=== PATIENT | female | born 1960 | race African-American/Black ===

== ENCOUNTER 2025-08-06 23:18 | Emergency (ER) | payer SELFPAY ==
[2025-08-06 23:22] VITALS: BP 193/106
[2025-08-07] VITALS: BP 185/96
[2025-08-07] MEDS: TORADOL 30 MG IM (01:40)
[2025-08-07] MEDS: PERCOCET 5/325 1 TABLET PO (02:00)
--- NOTE | 2025-08-07 02:14 | ED.GENMED ---
History of Present Illness
<Tyler Chaves PA-C - Last Filed: 08/09/25 11:35>
General
Chief Complaint: Musculo-Skeletal Complaint
Time Seen by Provider: 08/07/25 00:31
History of Present Illness
History of Present Illness:
64-year-old female presents to the emergency department for evaluation of left hip pain. She was taking out the trash at work when she fell and landed on her left side. She was able to ambulate but is unable to raise her left lower extremity
without severe pain. She did drive herself here. Pain is predominantly to the lateral hip. Denies head injury
Review of Systems
<Tyler Chaves PA-C - Last Filed: 08/09/25 11:35>
Review of Systems
Allergies reviewed?: Yes
All Other Systems: ROS reviewed and negative except as documented in HPI and ROS
Phy Exam
<Tyler Chaves PA-C - Last Filed: 08/09/25 11:35>
Physical Exam
Physical Exam:
GEN: Well appearing, NAD, WDWN
HEENT: Oral mucosa moist, no scleral icterus
Cardiac: Regular rate
Lung: No respiratory distress, no tachypnea
MSK: No gross deformity or injuries, left hip range of motion severely limited secondary to pain with reproducible tenderness to the lateral hip, no crepitus or shortening/external rotation
Skin: Good color, no pallor or jaundice, no rashes
Neuro: AO x3, moves all extremities freely
Psych: Calm, cooperative
Course
<Tyler Chaves PA-C - Last Filed: 08/09/25 11:35>
Orders/Labs/Results
Orders:
Orders
08/07/25 00:59
CR Hip - LT w/wo Pel 2-3 Vw* Urgent
Comment:
Reason For Exam: fall
Include a pelvis x-ray?: Yes
08/07/25 01:34
Ketorolac [Toradol] 30 mg IM NOW STA
08/07/25 01:39
CT Pelvis W/o Iv Contrast Urgent
Comment:
Reason For Exam: fall L hip pain
08/07/25 01:43
Oxycodone/Acetaminophen [Percocet 5/325] 1 tablet PO NOW STA
08/07/25 04:22
Ketorolac [Toradol] 30 mg IV NOW STA
08/07/25 04:25
Ice Pack-Treatment DIRECTED
Location: left ant hip/groin
Vital Signs
Initial and Last Documented VS:
Initial Vital Signs
Temp Pulse Resp BP Pulse Ox
97.9 F 75 20 193/106 99
08/06/25 23:22 08/06/25 23:22 08/06/25 23:22 08/06/25 23:22 08/06/25 23:22
Last Documented Vital Signs
Temp Pulse Resp BP Pulse Ox
97.9 F 75 20 187/90 99
08/06/25 23:22 08/06/25 23:22 08/06/25 23:22 08/07/25 06:36 08/07/25 02:15
<Alexandra Pinon, DO - Last Filed: 08/07/25 07:20>
Orders/Labs/Results
Orders:
Orders
08/07/25 00:59
CR Hip - LT w/wo Pel 2-3 Vw* Urgent
Comment:
Reason For Exam: fall
Include a pelvis x-ray?: Yes
08/07/25 01:34
Ketorolac [Toradol] 30 mg IM NOW STA
08/07/25 01:39
CT Pelvis W/o Iv Contrast Urgent
Comment:
Reason For Exam: fall L hip pain
08/07/25 01:43
Oxycodone/Acetaminophen [Percocet 5/325] 1 tablet PO NOW STA
08/07/25 04:22
Ketorolac [Toradol] 30 mg IV NOW STA
08/07/25 04:25
Ice Pack-Treatment DIRECTED
Location: left ant hip/groin
Vital Signs
Initial and Last Documented VS:
Initial Vital Signs
Temp Pulse Resp BP Pulse Ox
97.9 F 75 20 193/106 99
08/06/25 23:22 08/06/25 23:22 08/06/25 23:22 08/06/25 23:22 08/06/25 23:22
Last Documented Vital Signs
Temp Pulse Resp BP Pulse Ox
97.9 F 75 20 187/90 99
08/06/25 23:22 08/06/25 23:22 08/06/25 23:22 08/07/25 06:36 08/07/25 02:15
<Tyler Chaves PA-C - Last Filed: 08/09/25 11:35>
*Pulse Oximetry
SaO2: 99
Oxygen Mode of Delivery: Room air
Patient hypoxic: no
*Critical Care Note
Total Time (30-74mins, 75-104mins- exclusive of procedures): Not Applicable
ED Attending Note
<Tyler Chaves PA-C - Last Filed: 08/09/25 11:35>
-
Portions of this chart may have been created with voice recognition software.� Occasional wrong word or��sound alike� substitutions may have occurred due to the inherent limitations of voice recognition software.
<Alexandra Pinon DO - Last Filed: 08/07/25 07:20>
ED Attending Note
Patient seen and examined by attending physician: Yes
I performed a history and physical exam of patient and discussed management with resident, I reviewed resident's note and agree with documented findings and plan of care.: Yes
ED Attending Note:
Patient suffered mechanical fall at work while taking the trash out. She complains of severe pain right anterior medial hip. No radicular signs or symptoms. No back pain. No abdominal pain.
She denies head injury. No loss of consciousness. No dizziness or lightheadedness.
64-year-old obese woman appears her stated age, awake and alert, pleasant, appears in mild to moderate distress when attempting to reposition, otherwise in no acute distress. Exam remarkable for
Mild to moderate tenderness left inguinal region with moderately reduced left hip range of motion related to pain. There is no abdominal tenderness nor back tenderness. Peripheral pulses are full and equal. Distal sensation and strength intact.
Left hip and pelvis x-ray unremarkable.
CAT scan left hip and pelvis unremarkable. No fracture. There is note of L4-5 posterior instrumented fusion and small bowel anastomosis in the left lower quadrant.
Initially declined IM Toradol. Has been given a dose of Percocet.
Recommend trial of IV Toradol which she is agreeable to.
Will also apply local ice.
Our plan is to hopefully afford moderate pain management for left inguinal strain, left hip contusion with plan for discharge to home with a prescription for ibuprofen as well as Percocet.
07:10
Patient feeling improved after IV dose of Toradol.
Moving about much more easily.
Discharge plan as above.
Out of work note has been provided with tentative return to work August 12.
As this is a work related injury, recommend she touch base with her employer to discuss follow-up with work health provider.
Discharge Plan
Departure
Patient Disposition: Home (Routine Discharge)
Date of Disposition: 08/07/25
Time of Disposition: 07:14
Patient with high blood pressure during this ER visit?: No
Condition: Good
Discharge Problem:
acute left inguinal strain, Acute left hip contusion
Instructions: Hip Pointer (DC), Groin Strain ED
Prescriptions:
New
ibuprofen 800 mg tablet
800 mg PO QIDPRN PRN (Reason: pain, fever) Qty: 30 0RF
oxycodone-acetaminophen [Percocet] 5-325 mg Tablet
1 tab PO Q6HPRN PRN (Reason: pain) Qty: 10 0RF
Referrals:
UNKNOWN - PT DOES,NOT KNOW [Family Provider]
Stand Alone Forms: Return to Work
Activity Restrictions/Additional Instructions:
Follow-up with your work health/occupational health provider for recheck.
Interventions
Interventions:
*Risk Screen - Suicide Last Done: 08/06/25 23:22
*General Assessment Last Done: 08/07/25 07:36
*Neglect/Abuse Screening Last Done: 08/06/25 23:22
*ED- Fall Risk Assessment Last Done: 08/07/25 07:36
*ED COVID-19 Vaccine History Last Done: 08/06/25 23:22
*ED Influenza Vaccine History Last Done: 08/06/25 23:22
*Nursing Disposition Last Done: 08/07/25 07:36
ED-Musculoskeletal Assessment Last Done: 08/07/25 00:04
Discharge Date and Time
Discharge Date/Time: 08/07/25 09:15
Print Language: STATELESS
[2025-08-07] MEDS: TORADOL 30 MG IV (04:57)
[2025-08-07 06:36] VITALS: BP 187/90
== END 2025-08-07 09:15 | disposition home or self-care (01) ==
LOC: EMR 23:18
PROVIDERS: EMERGENCY PHYSICIAN Emergency Medicine
DX: S39.011A Strain of muscle, fascia and tendon of abdomen, initial encounter (principal); S70.02XA Contusion of left hip, initial encounter; W19.XXXA Unspecified fall, initial encounter; Y99.0 Civilian activity done for income or pay
CPT/HCPCS: 96374; 96372; 99284; 72192; 73502